=== PATIENT | female | born 1980 | race Two or more races ===

== ENCOUNTER 2025-05-16 19:52 | Emergency (ER) | payer MEDICAID ==
[2025-05-16] MEDS ORDERED: ACET-2030 PO (20:54)
[2025-05-16] MEDS ORDERED: IBUP-1490 PO (20:54)
[2025-05-16] MEDS ORDERED: KETOROLAC TROMETHAMINE 15 MG/ML VIAL ONE (20:57)
[2025-05-16] MEDS ORDERED: TDAP [DIPH/PERTUSSIS/TET] 0.5 ML VIAL IM ONE (20:57)
[2025-05-16] MEDS ORDERED: BACI/NEOM/POLY B OINT PKT 1 UDPKT PACKET ONE (20:58)
[2025-05-16] MEDS: KETOROLAC TROMETHAMINE 15 MG/ML VIAL IM ONE (21:12)
[2025-05-16] MEDS: BACI/NEOM/POLY B OINT PKT 1 UDPKT PACKET TP ONE (21:12)
[2025-05-16] MEDS: TDAP [DIPH/PERTUSSIS/TET] 0.5 ML VIAL IM ONE (21:12)
== END 2025-05-16 21:26 | disposition home or self-care (01) ==
LOC: ER 19:58
DX: T22.212A Burn of second degree of left forearm, initial encounter (principal); T31.0 Burns involving less than 10% of body surface; Y92.009 Unspecified place in unspecified non-institutional (private) residence as the place of occurrence of the external cause
CPT/HCPCS: 99284; 96372; 90471; 90715; J1885; A6403